=== PATIENT | male | born 1995 | race Caucasian/White ===

== ENCOUNTER 2016-12-05 18:25 | Emergency (ER) | payer BC | END 2016-12-05 20:10 | disposition home or self-care (01) | LOC: ER 18:25 | DX: S70.361A Insect bite (nonvenomous), right thigh, initial encounter (principal); S30.862A Insect bite (nonvenomous) of penis, initial encounter; F31.9 Bipolar disorder, unspecified; F17.210 Nicotine dependence, cigarettes, uncomplicated; W57.XXXA Bitten or stung by nonvenomous insect and other nonvenomous arthropods, initial encounter ==